=== PATIENT | male | born 1965 | race Caucasian/White ===

== ENCOUNTER 2016-04-26 09:11 | Emergency (ER) | payer MEDICAID ==
[~2016-04-26 09:11] MED LIST: /DULO30CA OR; /HALO2TA OR; /HALO5TAB OR; /THIA10TA; ABIL5TAB OR; ADDE10CA3 OR; ALLE25CA; ALLE25CA OR; AMBI10TA OR; CLAR5CHW; CLARITAN; FOLI1TAB; IBUP600T OR; KLON1TAB; KLON1TAB OR; LORA2TAB OR; MAGN250T; MAGNESIUM; MULTIVIT; NEUR800T OR; NEXI20CA OR; No Historical Meds; VITAMIN B COMPLEX WI; campral
--- NOTE | 2016-04-26 10:24 | EDDOCDS ---
Nurse's Notes [facility] Name: Jose Escobar Age: 51 yrs Sex: Male : 1965 Arrival Date: 04/26/2016 Time: 09:11 Bed Triage 1 Private MD: NO PRIMARY PHYSICIAN, . Diagnosis: Encounter for issue of repeat prescription-No controlled substances given per behavioral health Presentation: 04/26 09:13 Presenting complaint: Patient states: need refill on adderall, clonazepam, and srm wellbutrin. has had several visits for the same. has appt in 2 weeks and the . Adult Sepsis Screening: The patient does not have new or worsening altered mentation. Patient's respiratory rate is less than 22. Systolic blood pressure is greater than 100. Patient has a qSOFA score of 0- Negative Sepsis Screen. Suicide/Homicide risk assessment- the patient denies having any suicidal and/or homicidal ideations and does not present with any other emotional, behavioral or mental health complaints. Status: Patient is not a freight service inspector or dependent. Transition of care: patient was not received from another setting of care. 09:13 Acuity: KEYANA Level 5 srm 09:13 Method Of Arrival: Walkin/Carried/Asstd srm Triage Assessment: 09:16 General: Appears in no apparent distress, Behavior is appropriate for age, cooperative. srm Pain: Denies pain. HIV screening NA for this visit Offered previously. Historical: - Allergies: PENICILLINS (Anaphylaxis); - Home Meds: 1. clonazepam 2 mg Oral tab 1 tab 3 times per day 2. Adderall 30 mg oral tab 1 tab 2 times per day 3. bupropion HCl 150 mg Oral TbER 1 tab once daily 4. Ventolin Rotahaler/Rotacaps 200 mcg Inhl CpDv Q6h PRN ran out 5. famotidine 40 mg Oral tab 1 tab once daily ran out - PMHx: ADHD; PTSD; GERD; Asthma; - PSHx: Hernia repair- Left inguinal; - Social history: Smoking status: Patient uses tobacco products, current every day smoker. No barriers to communication noted, The patient speaks fluent Rwandan, Speaks appropriately for age. - Family history: Not pertinent. - : The pt / caregiver states he / she is not on anticoagulants. Home medication list is obtained from the patient. - Exposure Risk Screening:: None identified. Screenin:50 Screening information is obtained from the patient. Fall risk: No risks identified. srm Assistance ADL's: requires no assistance with activities of daily living. Abuse/DV Screen: The patient / caregiver reports he/she is: not in a situation that causes fear, pain or injury. Nutritional screening: No deficits noted. Advance Directives: There is no active DNR order. home support is adequate. Assessment: 09:50 General: Appears in no apparent distress, Behavior is appropriate for age, cooperative. srm EENT: No deficits noted. Cardiovascular: No deficits noted. Respiratory: No deficits noted. 10:18 General: Appears in no apparent distress, comfortable, Behavior is appropriate for age, ml6 cooperative. Pain: Denies pain. Cardiovascular: No deficits noted. Capillary refill < 3 seconds is brisk in bilateral fingers toes Heart tones S1 S2 present. Respiratory: No deficits noted. Airway is patent Respiratory effort is even, unlabored, Respiratory pattern is regular, symmetrical, Breath sounds are clear bilaterally. GI: No deficits noted. Abdomen is flat, non- distended Bowel sounds present X 4 quads. Social Work Consult: 10:07 Social Work Note: MILES Jacob at [facility], who confirmed that patient was seen jl there by his therapist this morning. She advised that patient has his first appointment scheduled with Dr. Peña on 05/13. She also noted that he [facility], although is not currently in active treatment there. Patient was discussed with [facility], who advised that he'd prefer to have patient follow up with Dr. Peña before providing any additional controlled medications, especially given the hx. Patient to be referred to follow up with Dr. Peña on the as scheduled. Vital Signs: 09:12 BP 155 / 91; Pulse 103; Resp 18; Temp 98.8; Pulse Ox 100% ; Weight 102.51 kg; Height 6 elp ft. 0 in. (182.88 cm); Pain 0/10; 10:20 ml6 09:12 Body Mass Index 30.65 (102.51 kg, 182.88 cm) elp 10:20 patient refused ml6 Vitals: 09:12 Log In Time: April 26, 2016 at 09:10. [facility] ED Course: 09:12 Patient visited by Zenaida Evangelista, WATSON. elp 09:12 NO PRIMARY PHYSICIAN, . is Private Physician. elp 09:12 Patient moved to Waiting elp 09:13 Patient visited by Zenaida Evangelista PCA. elp 09:13 Patient moved to Pre RCE elp 09:15 Triage Initiated srm 09:17 Patient moved to Triage 1 srm 09:18 Jacinto Sanchez PA is PHCP. btw 09:18 Mike Kimball MD is Attending Physician. btw 09:21 Patient visited by Jacinto Sanchez PA. btw 09:50 The patient / caregiver is instructed regarding the plan of care and ED course. Patient srm has correct armband on for positive identification. 09:51 Patient visited by Leydi Mccormick RN. srm 10:05 [facility] Payment Agreement was scanned into [employer] and attached to record. lg 10:07 [facility] is Referral Physician. btw 10:22 No IV's were initiated during this patient's visit. No procedures done that require ml6 assistance. Order Results: There are currently no results for this order. Outcome: 10:08 Discharge ordered by Provider. btw 10:20 Discharge Assessment: patient administered narcotics - no. The following High Risk ml6 Discharge criteria are identified: None. Discharged to home ambulatory. Condition: stable. Discharge instructions given to patient, Instructed on discharge instructions, follow up and referral plans. medication usage, Demonstrated understanding of instructions, medications, Patient was not receptive of discharge instructions. Other patient yelling at staff, states "I don't want fucking hydroxizine" , patient threw D/C papers on the floor. No special radiology studies were completed. Property :Personal belongings accompany Pt. 10:23 Patient left the ED. ml6 Signatures: Leydi Mccormick, RN RN [facility] Adeline, Murray, PSA PSA Latoya Davis, Reg Reg Jose Hwang RN RN ml6 Jacinto Sanchez PA PA btw Zenaida Evangelista PCA EXTERIOR WORK HELPER elp MTDD
--- NOTE | 2016-04-26 10:24 | EDDOCDS ---
Physician Documentation [facility] Name: Jose Escobar Age: 51 yrs Sex: Male : 1965 Arrival Date: 04/26/2016 Time: 09:11 Bed Triage 1 Private MD: NO PRIMARY PHYSICIAN, . Disposition: 04/26/16 10:08 Discharged to Home/Self Care. Impression: Encounter for issue of repeat prescription - No controlled substances given per behavioral health. - Condition is Stable. - Discharge Instructions: Medicine Refill at the Emergency Department. - Prescriptions for bupropion HCl 150 mg Oral tablet extended release - take 1 tablet by ORAL route once daily; 14 tablet. Hydroxyzine HCl 50 mg Oral Tablet - take 1 tablet by ORAL route every 8 hours As needed; 20 tablet. - Medication Reconciliation, Local Pharmacy Hours form. - Follow up: [facility]; When: As soon as possible; Reason: Further diagnostic work-up, Recheck today's complaints, Continuance of care. - Problem is an ongoing problem. - Symptoms are unchanged. Historical: - Allergies: PENICILLINS (Anaphylaxis); - Home Meds: 1. clonazepam 2 mg Oral tab 1 tab 3 times per day 2. Adderall 30 mg oral tab 1 tab 2 times per day 3. bupropion HCl 150 mg Oral TbER 1 tab once daily 4. Ventolin Rotahaler/Rotacaps 200 mcg Inhl CpDv Q6h PRN ran out 5. famotidine 40 mg Oral tab 1 tab once daily ran out - PMHx: ADHD; PTSD; GERD; Asthma; - PSHx: Hernia repair- Left inguinal; - Social history: Smoking status: Patient uses tobacco products, current every day smoker. No barriers to communication noted, The patient speaks fluent Luxembourgish, Speaks appropriately for age. - Family history: Not pertinent. - : The pt / caregiver states he / she is not on anticoagulants. Home medication list is obtained from the patient. - Exposure Risk Screening:: None identified. Vital Signs: 04/26 09:12 BP 155 / 91; Pulse 103; Resp 18; Temp 98.8; Pulse Ox 100% ; Weight 102.51 kg / 226 lbs; elp Height 6 ft. 0 in. (182.88 cm); Pain 0/10; 10:20 ml6 09:12 Body Mass Index 30.65 (102.51 kg, 182.88 cm) elp 10:20 patient refused ml6 MDM: 09:49 Financial registration complete. lg 10:05 [facility] Payment Agreement was scanned into [employer] and attached to record. lg Signatures: Leydi Mccormick, RN RN [facility] LisaLatoya andrea, Reg Reg lg Jose Mata RN RN ml6 Jacinto Sanchez PA PA btw The chart was reviewed and I authenticate all verbal orders and agree with the evaluation and treatment provided.Attachments: 10:05 [facility] Payment Agreement lg MTDD
--- NOTE | 2016-04-28 11:23 | EDDOCDS ---
Physician Documentation [facility] Name: Jose Escobar Age: 51 yrs Sex: Male : 1965 Arrival Date: 04/26/2016 Time: 09:11 Bed Triage 1 Private MD: NO PRIMARY PHYSICIAN, . Disposition: 04/26/16 10:08 Discharged to Home/Self Care. Impression: Encounter for issue of repeat prescription - No controlled substances given per behavioral health. - Condition is Stable. - Discharge Instructions: Medicine Refill at the Emergency Department. - Prescriptions for bupropion HCl 150 mg Oral tablet extended release - take 1 tablet by ORAL route once daily; 14 tablet. Hydroxyzine HCl 50 mg Oral Tablet - take 1 tablet by ORAL route every 8 hours As needed; 20 tablet. - Medication Reconciliation, Local Pharmacy Hours form. - Follow up: [facility]; When: As soon as possible; Reason: Further diagnostic work-up, Recheck today's complaints, Continuance of care. - Problem is an ongoing problem. - Symptoms are unchanged. Historical: - Allergies: PENICILLINS (Anaphylaxis); - Home Meds: 1. clonazepam 2 mg Oral tab 1 tab 3 times per day 2. Adderall 30 mg oral tab 1 tab 2 times per day 3. bupropion HCl 150 mg Oral TbER 1 tab once daily 4. Ventolin Rotahaler/Rotacaps 200 mcg Inhl CpDv Q6h PRN ran out 5. famotidine 40 mg Oral tab 1 tab once daily ran out - PMHx: ADHD; PTSD; GERD; Asthma; - PSHx: Hernia repair- Left inguinal; - Social history: Smoking status: Patient uses tobacco products, current every day smoker. No barriers to communication noted, The patient speaks fluent Khmer, Speaks appropriately for age. - Family history: Not pertinent. - : The pt / caregiver states he / she is not on anticoagulants. Home medication list is obtained from the patient. - Exposure Risk Screening:: None identified. Vital Signs: 04/26 09:12 BP 155 / 91; Pulse 103; Resp 18; Temp 98.8; Pulse Ox 100% ; Weight 102.51 kg / 226 lbs; elp Height 6 ft. 0 in. (182.88 cm); Pain 0/10; 10:20 ml6 09:12 Body Mass Index 30.65 (102.51 kg, 182.88 cm) elp 10:20 patient refused ml6 MDM: 09:49 Financial registration complete. lg : [facility] Payment Agreement was scanned into [employer] and attached to record. lg 04/27 10: T-Sheet-- Draft Copy was scanned into [employer] and attached to record. gb Signatures: Leydi Mccormick RN RN [facility] Ramya Santiago, Reg Reg gb Latoya Snell, Reg Reg lg Jose Mata RN RN ml6 Jacinto Sanchez, GARRET PA btw The chart was reviewed and I authenticate all verbal orders and agree with the evaluation and treatment provided.Attachments: 04/26 10:05 [facility] Payment Agreement lg 04/27 10: T-Sheet-- Draft Copy gb Chart Complete MTDD
--- NOTE | 2016-04-28 11:24 | EDDOCDS ---
Nurse's Notes [facility] Name: Jose Escobar Age: 51 yrs Sex: Male : 1965 Arrival Date: 04/26/2016 Time: 09:11 Bed Triage 1 Private MD: NO PRIMARY PHYSICIAN, . Diagnosis: Encounter for issue of repeat prescription-No controlled substances given per behavioral health Presentation: 04/26 09:13 Presenting complaint: Patient states: need refill on adderall, clonazepam, and srm wellbutrin. has had several visits for the same. has appt in 2 weeks and the . Adult Sepsis Screening: The patient does not have new or worsening altered mentation. Patient's respiratory rate is less than 22. Systolic blood pressure is greater than 100. Patient has a qSOFA score of 0- Negative Sepsis Screen. Suicide/Homicide risk assessment- the patient denies having any suicidal and/or homicidal ideations and does not present with any other emotional, behavioral or mental health complaints. Status: Patient is not a health equipment servicer or dependent. Transition of care: patient was not received from another setting of care. 09:13 Acuity: KEYANA Level 5 srm 09:13 Method Of Arrival: Walkin/Carried/Asstd srm Triage Assessment: 09:16 General: Appears in no apparent distress, Behavior is appropriate for age, cooperative. srm Pain: Denies pain. HIV screening NA for this visit Offered previously. Historical: - Allergies: PENICILLINS (Anaphylaxis); - Home Meds: 1. clonazepam 2 mg Oral tab 1 tab 3 times per day 2. Adderall 30 mg oral tab 1 tab 2 times per day 3. bupropion HCl 150 mg Oral TbER 1 tab once daily 4. Ventolin Rotahaler/Rotacaps 200 mcg Inhl CpDv Q6h PRN ran out 5. famotidine 40 mg Oral tab 1 tab once daily ran out - PMHx: ADHD; PTSD; GERD; Asthma; - PSHx: Hernia repair- Left inguinal; - Social history: Smoking status: Patient uses tobacco products, current every day smoker. No barriers to communication noted, The patient speaks fluent Cambodian, Speaks appropriately for age. - Family history: Not pertinent. - : The pt / caregiver states he / she is not on anticoagulants. Home medication list is obtained from the patient. - Exposure Risk Screening:: None identified. Screenin:50 Screening information is obtained from the patient. Fall risk: No risks identified. srm Assistance ADL's: requires no assistance with activities of daily living. Abuse/DV Screen: The patient / caregiver reports he/she is: not in a situation that causes fear, pain or injury. Nutritional screening: No deficits noted. Advance Directives: There is no active DNR order. home support is adequate. Assessment: 09:50 General: Appears in no apparent distress, Behavior is appropriate for age, cooperative. srm EENT: No deficits noted. Cardiovascular: No deficits noted. Respiratory: No deficits noted. 10:18 General: Appears in no apparent distress, comfortable, Behavior is appropriate for age, ml6 cooperative. Pain: Denies pain. Cardiovascular: No deficits noted. Capillary refill < 3 seconds is brisk in bilateral fingers toes Heart tones S1 S2 present. Respiratory: No deficits noted. Airway is patent Respiratory effort is even, unlabored, Respiratory pattern is regular, symmetrical, Breath sounds are clear bilaterally. GI: No deficits noted. Abdomen is flat, non- distended Bowel sounds present X 4 quads. Social Work Consult: 10:07 Social Work Note: MILES Jacob at [facility], who confirmed that patient was seen jl there by his therapist this morning. She advised that patient has his first appointment scheduled with Dr. Peña on 05/13. She also noted that he has a h[facility], although is not currently in active treatment there. Patient was discussed with [facility], who advised that he'd prefer to have patient follow up with Dr. Peña before providing any additional controlled medications, especially given the hx. Patient to be referred to follow up with Dr. Peña on the as scheduled. Vital Signs: 09:12 BP 155 / 91; Pulse 103; Resp 18; Temp 98.8; Pulse Ox 100% ; Weight 102.51 kg; Height 6 elp ft. 0 in. (182.88 cm); Pain 0/10; 10:20 ml6 09:12 Body Mass Index 30.65 (102.51 kg, 182.88 cm) elp 10:20 patient refused ml6 Vitals: 09:12 Log In Time: April 26, 2016 at 09:10. [facility] ED Course: 09:12 Patient visited by Zenaida Evangelista, WATSON. elp 09:12 NO PRIMARY PHYSICIAN, . is Private Physician. elp 09:12 Patient moved to Waiting elp 09:13 Patient visited by Zenaida Evangelista PCA. elp 09:13 Patient moved to Pre RCE elp 09:15 Triage Initiated srm 09:17 Patient moved to Triage 1 srm 09:18 Jacinto Sanchez PA is PHCP. btw 09:18 Mike Kimball MD is Attending Physician. btw 09:21 Patient visited by Jacinto Sanchez PA. btw 09:50 The patient / caregiver is instructed regarding the plan of care and ED course. Patient srm has correct armband on for positive identification. 09:51 Patient visited by Leydi Mccormick RN. srm 10:05 [facility] Payment Agreement was scanned into [employer] and attached to record. lg 10:07 [facility] is Referral Physician. btw 10:22 No IV's were initiated during this patient's visit. No procedures done that require ml6 assistance. 04/27 10:19 T-Sheet-- Draft Copy was scanned into [employer] and attached to record. gb Order Results: There are currently no results for this order. Outcome: 04/26 10:08 Discharge ordered by Provider. btw 10:20 Discharge Assessment: patient administered narcotics - no. The following High Risk ml6 Discharge criteria are identified: None. Discharged to home ambulatory. Condition: stable. Discharge instructions given to patient, Instructed on discharge instructions, follow up and referral plans. medication usage, Demonstrated understanding of instructions, medications, Patient was not receptive of discharge instructions. Other patient yelling at staff, states "I don't want fucking hydroxizine" , patient threw D/C papers on the floor. No special radiology studies were completed. Property :Personal belongings accompany Pt. 10:23 Patient left the ED. ml6 Signatures: Leydi Mccormick, KATHERINE MURPHY [facility] Adeline, Murray, PSA PSA Ramya Davidson, Reg Reg gb Latoya Snell, Reg Reg lg Jose Mata RN RN ml6 Jacnito Sanchez PA PA btw Zenaida Evangelista PCA ASE CERTIFIED TECHNICIAN elp Chart Complete MTDD
--- NOTE | 2016-04-28 11:24 | EDDOCDS ---
Physician Documentation [facility] Name: Jose Escobar Age: 51 yrs Sex: Male : 1965 Arrival Date: 04/26/2016 Time: 09:11 Bed Triage 1 Private MD: NO PRIMARY PHYSICIAN, . Disposition: 04/26/16 10:08 Discharged to Home/Self Care. Impression: Encounter for issue of repeat prescription - No controlled substances given per behavioral health. - Condition is Stable. - Discharge Instructions: Medicine Refill at the Emergency Department. - Prescriptions for bupropion HCl 150 mg Oral tablet extended release - take 1 tablet by ORAL route once daily; 14 tablet. Hydroxyzine HCl 50 mg Oral Tablet - take 1 tablet by ORAL route every 8 hours As needed; 20 tablet. - Medication Reconciliation, Local Pharmacy Hours form. - Follow up: [facility]; When: As soon as possible; Reason: Further diagnostic work-up, Recheck today's complaints, Continuance of care. - Problem is an ongoing problem. - Symptoms are unchanged. Historical: - Allergies: PENICILLINS (Anaphylaxis); - Home Meds: 1. clonazepam 2 mg Oral tab 1 tab 3 times per day 2. Adderall 30 mg oral tab 1 tab 2 times per day 3. bupropion HCl 150 mg Oral TbER 1 tab once daily 4. Ventolin Rotahaler/Rotacaps 200 mcg Inhl CpDv Q6h PRN ran out 5. famotidine 40 mg Oral tab 1 tab once daily ran out - PMHx: ADHD; PTSD; GERD; Asthma; - PSHx: Hernia repair- Left inguinal; - Social history: Smoking status: Patient uses tobacco products, current every day smoker. No barriers to communication noted, The patient speaks fluent Greenlandic, Speaks appropriately for age. - Family history: Not pertinent. - : The pt / caregiver states he / she is not on anticoagulants. Home medication list is obtained from the patient. - Exposure Risk Screening:: None identified. Vital Signs: 04/26 09:12 BP 155 / 91; Pulse 103; Resp 18; Temp 98.8; Pulse Ox 100% ; Weight 102.51 kg / 226 lbs; elp Height 6 ft. 0 in. (182.88 cm); Pain 0/10; 10:20 ml6 09:12 Body Mass Index 30.65 (102.51 kg, 182.88 cm) elp 10:20 patient refused ml6 MDM: 09:49 Financial registration complete. lg : [facility] Payment Agreement was scanned into [employer] and attached to record. lg 04/27 10: T-Sheet-- Draft Copy was scanned into [employer] and attached to record. gb Signatures: Leydi Mccormick RN RN [facility] Ramya Santiago, Reg Reg gb Latoya Snell, Reg Reg lg Jose Mata RN RN ml6 Jacinto Sanchez, GARRET PA btw The chart was reviewed and I authenticate all verbal orders and agree with the evaluation and treatment provided.Attachments: 04/26 10:05 [facility] Payment Agreement lg 04/27 10: T-Sheet-- Draft Copy gb Chart Complete MTDD
== END 2016-04-26 10:23 | disposition home or self-care (01) ==
LOC: M ED 09:11
DX: Z76.0 Encounter for issue of repeat prescription (principal); F90.9 Attention-deficit hyperactivity disorder, unspecified type; F43.10 Post-traumatic stress disorder, unspecified; K21.9 Gastro-esophageal reflux disease without esophagitis; J45.909 Unspecified asthma, uncomplicated; Z72.0 Tobacco use; Z79.899 Other long term (current) drug therapy; Z88.0 Allergy status to penicillin

== ENCOUNTER → 2016-05-06 | Outpatient (CLI) | payer MEDICAID | LOC: M OUTALCOH 07:45 | PROVIDERS: ATTEND Psychiatry & Neurology Psychiatry | DX: Z13.9 Encounter for screening, unspecified (principal); F14.10 Cocaine abuse, uncomplicated; F10.20 Alcohol dependence, uncomplicated ==

== ENCOUNTER → 2016-05-20 | Outpatient (CLI) | payer MEDICAID ==
--- NOTE | 2016-05-20 15:17 | REP ---
RIGHT INGUINAL AND LEFT INGUINAL CANAL ULTRASOUND. HISTORY: Groin pain. History of left inguinal hernia repair in approximate 1994. FINDINGS: Bilateral inguinal canal and inguinal region soft-tissue ultrasound is performed. There is evidence of a reducible hernia in the right inguinal region containing mesenteric fat. No increase in canal size with Valsalva noted on the left. Some hypoechoic mesenteric fat can be seen within the canal. No definite hernia seen. The right canal increases with Valsalva from 10 mm to 22.8 mm AP dimension. IMPRESSION: Findings consistent with right inguinal hernia transmitting mesenteric fat. This is reducible. Equivocal findings on the left. No increase in canal size with Valsalva. Signed by Bret Clifford MD 05/20/2016 03:22 P
[2016-05-20 16:09] LABS: ALBUMIN 4.1 GM/DL (3.2-5.2); ALBUMIN/GLOBULIN RATIO 1.52 (1.00-1.93); ALKALINE PHOSPHATASE 56 U/L (45-117); ALT/SGPT 26 U/L (12-78); ANION GAP 7 MEQ/L (8-16); AST/SGOT 19 U/L (15-37); BILIRUBIN,TOTAL 0.3 MG/DL (0.2-1.0); BLOOD UREA NITROGEN 10 MG/DL (7-18); CALCIUM LEVEL 8.7 MG/DL (8.5-10.1); CARBON DIOXIDE LEVEL 30 MEQ/L (21-32); CHLORIDE LEVEL 108 MEQ/L (98-107); CHOLESTEROL LEVEL 144 MG/DL (<200); CREATININE FOR GFR 1.08 MG/DL (0.70-1.30); GLOMERULAR FILTRATION RATE > 60.0 (>56); GLUCOSE, FASTING 87 MG/DL (70-105); MAGNESIUM LEVEL 2.1 MG/DL (1.8-2.4); POTASSIUM SERUM 4.3 MEQ/L (3.5-5.1); SODIUM LEVEL 145 MEQ/L (136-145); TOTAL PROTEIN 6.8 GM/DL (6.4-8.2); TRIGLYCERIDES LEVEL 146 MG/DL (<150)
[2016-05-20 18:12] LABS: BASO # 0.1 K/mm3 (0.0-0.2); BASO % 1.7 % (0.0-1.0); EOS # 0.4 K/mm3 (0.0-0.50); EOS % 6.3 % (0.0-3.0); LARGE UNSTAINED CELL # 0.2 K/mm3 (0.0-0.4); LYMPH # 1.5 K/mm3 (1.5-4.5); LYMPH % 21.9 % (24.0-44.0); MEAN CORPUSCULAR HEMOGLOBIN 31.5 pg (27.0-33.0); MEAN CORPUSCULAR HGB CONC 33.1 g/dl (32.0-36.5); MEAN CORPUSCULAR VOLUME 95.2 fl (80.0-96.0); MONO # 0.4 K/mm3 (0.0-0.8); MONO % 6.8 % (0.0-5.0); NEUTROPHILS # 3.7 K/mm3 (1.8-7.7); NEUTROPHILS % 60.3 % (36.0-66.0); PLATELET COUNT, AUTOMATED 218 k/mm3 (150-450); WHITE BLOOD COUNT 6.2 K/mm3 (4.0-10.0)
== END ==
LOC: M LAB 14:04 → M RAD 14:04
PROVIDERS: ATTEND Nurse Practitioner Family
DX: K40.90 Unilateral inguinal hernia, without obstruction or gangrene, not specified as recurrent (principal); K50.90 Crohn's disease, unspecified, without complications; R19.7 Diarrhea, unspecified; F41.8 Other specified anxiety disorders; Z13.220 Encounter for screening for lipoid disorders

== ENCOUNTER → 2016-05-30 | Outpatient (CLI) | payer MEDICAID ==
--- NOTE | 2016-05-30 10:38 | REP ---
Lumbar spine series: Seven views. History: Muscle spasm. Back pain. Comparison study September 25, 2013. Findings: Lateral views done in flexion extension and neutral position show no subluxation or instability. Lumbar vertebral body heights are preserved. There is degenerative disc disease diffusely in the lumbar spine with vacuum phenomenon and osteophyte formation at L5-S1 and disc space narrowing and early spurring L4-5, L3-4 and L2-3. These findings are essentially unchanged from the 2013 study. Vascular calcification is seen in a normal caliber aorta. Pedicles and posterior elements are intact. There is no evidence of spondylolysis or spondylolisthesis. Psoas margins are symmetric. Sacrum and SI joints are unremarkable. There is some facet hypertrophy and sclerosis on the left at L3-4 and bilaterally at L4-5 and L5-S1. This is mild. No bony destructive lesion is seen. Impression: Degenerative spondylosis changes. No acute bony abnormality. Signed by Bret Clifford MD 05/30/2016 12:24 P
== END ==
LOC: M WUC 09:15
PROVIDERS: ATTEND Nurse Practitioner Family
DX: M47.817 Spondylosis without myelopathy or radiculopathy, lumbosacral region (principal); M62.830 Muscle spasm of back

== ENCOUNTER → 2016-07-08 | Outpatient (CLI) | payer OTHER ==
[~2016-07-08] MED LIST changes: +ALBU17IN INH; +CLON1TAB PO; +COZA50TA PO; +METO25TA74 PO; +MULT1TAB18 PO; +NEXI20CA AD; -NEXI20CA OR
--- NOTE | 2016-07-09 22:04 | ECGEPIP ---
Stationary ECG Study [facility] Test Date: 2016-07-08 Pat Name: MAYO GRIFFITH Department: Room: - Gender: M Proprietary Trader: MICHAEL : 1965 Requested By: HAMLET Ashby Order Number: [id number] Reading MD: Dirk Haile Measurements Intervals [place] Rate: 79 P: 52 CT: 130 QRS: 54 QRSD: 78 T: 53 QT: 362 QTc: 416 Interpretive Statements SINUS RHYTHM WITH MARKED SINUS ARRHYTHMIA SINCE 11/12/12 HR IS SLOWER AND INCOMPLETE RIGHT BUNDLE BRANCH BLOCK IS NO LONGER PRESENT Electronically Signed On 07-09-2016 22:04:02 EDT by Dirk Haile
== END ==
LOC: M EKG 11:24
PROVIDERS: ATTEND Anesthesiology
DX: I10 Essential (primary) hypertension (principal)

== ENCOUNTER → 2016-07-08 | Outpatient (CLI) | payer OTHER ==
[2016-07-08 12:06] LABS: MEAN CORPUSCULAR HEMOGLOBIN 32.2 pg (27.0-33.0); MEAN CORPUSCULAR HGB CONC 34.5 g/dl (32.0-36.5); MEAN CORPUSCULAR VOLUME 93.4 fl (80.0-96.0); RED CELL DISTRIBUTION WIDTH 13.4 % (11.5-14.5); WHITE BLOOD COUNT 6.5 K/mm3 (4.0-10.0)
[2016-07-08 12:34] LABS: ALBUMIN 4.2 GM/DL (3.2-5.2); ALBUMIN/GLOBULIN RATIO 1.35 (1.00-1.93); ALKALINE PHOSPHATASE 72 U/L (45-117); ALT/SGPT 22 U/L (12-78); ANION GAP 8 MEQ/L (8-16); AST/SGOT 13 U/L (15-37); BILIRUBIN,TOTAL 0.4 MG/DL (0.2-1.0); BLOOD UREA NITROGEN 17 MG/DL (7-18); CALCIUM LEVEL 9.1 MG/DL (8.5-10.1); CARBON DIOXIDE LEVEL 29 MEQ/L (21-32); CHLORIDE LEVEL 105 MEQ/L (98-107); CREATININE FOR GFR 0.94 MG/DL (0.70-1.30); GLOMERULAR FILTRATION RATE > 60.0 (>56); GLUCOSE, FASTING 94 MG/DL (70-105); MAGNESIUM LEVEL 2.2 MG/DL (1.8-2.4); POTASSIUM SERUM 3.9 MEQ/L (3.5-5.1); SODIUM LEVEL 142 MEQ/L (136-145); TOTAL PROTEIN 7.3 GM/DL (6.4-8.2)
== END ==
LOC: M LAB 11:17
PROVIDERS: ATTEND Nurse Practitioner Family
DX: R20.2 Paresthesia of skin (principal); D64.9 Anemia, unspecified

== ENCOUNTER → 2016-07-12 | Day surgery (SDC) | payer MEDICAID, OTHER ==
[~2016-07-12] VITALS: Ht 185.4 cm; Wt 105.2 kg
[~2016-07-12] MED LIST changes: +BUPIVACAINE HCL 0.25% 30 ML VIAL As Ordered ONE; +GLYCOPYRROLATE INJ 0.2 MG/ML 2 ML VIAL As Ordered ONE; +KETOROLAC 30 MG/ML VIAL (J1885) IV PRN; +KETOROLAC 60 MG/2 ML VIAL (J1885) As Ordered ONE; +LIDOCAINE 1% SDV INJ 30 ML VIAL As Ordered ONE; +LIDOCAINE 2% INJ 100 MG/5 ML SDV (FOR ANES.) As Ordered ONE; +LR 1,000 ML IV SCH; +LevoFLOXacin IV 500 MG in APPROPRIATE DILUENT 1 EA IV ONE; +METOCLOPRAMIDE INJ 10MG/2ML VIAL (J2765) As Ordered ONE; +MIDAZOLAM INJ 2 MG/2 ML VIAL (J2250) As Ordered ONE; +NEOSTIGMINE 1MG/ML 5 ML SYRINGE (J2710) As Ordered ONE; +NORC1TAB4 PO; +NORCO, ANEXSIA 5/325MG TABLET (HYDROcodone/ACETAMINOPHEN) PO PRN; +ONDANSETRON 4MG/2ML VIAL (J2405) As Ordered ONE; +ONDANSETRON 4MG/2ML VIAL (J2405) IV PRN; +PROPOFOL 200 MG/20 ML VIAL As Ordered ONE; +ROCURONIUM BROMIDE 50 MG/5 ML VIAL As Ordered ONE; +dexameTHASONE 4 MG/ML 1ML VIAL (J1100) As Ordered ONE; +fentaNYL 100 MCG/2 ML INJECTION (J3010) IV PRN; +fentaNYL 250 MCG/5 ML INJECTION (J3010) As Ordered ONE
[2016-07-12 14:40] VITALS: BP 153/91
--- NOTE | 2016-07-12 18:35 | RO ---
DATE OF PROCEDURE: 07/12/2016 PREOPERATIVE DIAGNOSIS: Right inguinal hernia. POSTOPERATIVE DIAGNOSIS: Right direct inguinal hernia. PROCEDURE: Robotic-assisted laparoscopic right inguinal hernia repair, transabdominal preperitoneal hernioplasty (KHURRAM). SURGEON: Dr. Biggs GOLF COURSE KEEPER: Alexa Kc NP ANESTHESIA: General anesthesia. ESTIMATED BLOOD LOSS: Less than10 mL. COMPLICATIONS: None. REMARKS: The patient tolerated procedure well. PROCEDURE: Mr. Escobar is a 51-year-old gentleman who was sent to my clinic for discomfort involving the right groin especially with effort. Was found to have a small right inguinal hernia. This was confirmed in my clinical exam. He was advised repair and different options for repair. We have decided on performing laparoscopic repair with the help to the [employer] robot platform. He received Levaquin 500 mg intravenous (IV) preoperatively for prophylaxis. Was brought to the operating room, placed in the lithotomy position. General endotracheal anesthesia then started without any problems. A Lovell catheter was placed to decompress his urinary bladder. Abdomen prepped and draped in usual sterile fashion. After surgical time-out we began our surgery. A small incision created superior to the umbilicus taken deep into the anterior fascia. A Veress needle placed in controlled fashion. CO2 insufflation started to a pressure of 15 mmHg. Using the same incision a 5 mm Visiport was placed under direct vision of laparoscope. He was then placed in a mild Trendelenburg position. Right side tilted up to further expose the right groin area. Two robotic working trocars were placed along the right and left side at the umbilical line. The [employer] robot tower was maneuvered in place in-between the patient's legs. The trocars then docked to the robot. I scrubbed out and took control of the camera and instruments at the surgeon's console. Diagnostic laparoscopy: Small direct hernia defect was noted and confirmed. Using scissors with the Bovie cautery, the peritoneum overlying the area along a line forming from the medial umbilical ligament medially to the anterior-superior iliac spine laterally was created. The peritoneum was taken down away from the abdominal wall coming back to the medial edge also exposing the pubic tubercle up to the symphysis pubis. The fat containing hernia defect at the direct hernia space medial to the inferior epigastric vessels was reduced back into the preperitoneal space. The contents of the inguinal canal was further dissected free taking down the peritoneum away from this area, down inferiorly to about the level of the iliopubic tract. The space that was created was then further dissected free to accommodate a large mesh. Using to 2-0 V-Loc the hernia defect as well as the hernia sac was closed with a mattress suture, likewise the hernia sac was imbricated away from the defect. After doing so I chose a large 3-D Max light mesh which was placed into the abdomen and laid out into the preperitoneal space adequately covering the direct and indirect hernia space as well as the potential hernia spaces along the femoral space. A single stitch of #2-0 Vicryl was placed along the pubic tubercle told this in place. After checking for hemostasis the peritoneal opening was then closed with 2-0 V-Loc in a running fashion. There was a small defect on the inferior peritoneal covering from our dissection which was also closed with a 2-0 Vicryl. After surveying the pelvis for possible injury, and once satisfied I scrubbed back in. The abdomen was then deflated. All ports removed. I placed ilioinguinal block along the right groin as well as placed more local numbing medication at the port site. This was then closed with #4-0 Monocryl in subcuticular fashion. Dermabond was then used for wound coverage. The patient was promptly awakened, extubated, Lovell catheter removed, brought to recovery room stable.
== END | disposition home or self-care (01) ==
LOC: M SDC 08:33
PROVIDERS: ATTEND Surgery
DX: K40.90 Unilateral inguinal hernia, without obstruction or gangrene, not specified as recurrent (principal); I10 Essential (primary) hypertension; D64.9 Anemia, unspecified; J45.909 Unspecified asthma, uncomplicated; F90.9 Attention-deficit hyperactivity disorder, unspecified type; F43.10 Post-traumatic stress disorder, unspecified; Z79.899 Other long term (current) drug therapy; Z88.0 Allergy status to penicillin; F17.210 Nicotine dependence, cigarettes, uncomplicated
CPT/HCPCS: 49650; C1781; J1100; J1885; J1956; J2250; J2405; J2710; J2765; J3010

== ENCOUNTER 2016-11-17 12:57 | Emergency (ER) | payer OTHER ==
[~2016-11-17] VITALS: Ht 185.4 cm; Wt 108.2 kg
[2016-11-17 12:57] VITALS: BP 169/94
[~2016-11-17 12:57] MED LIST changes: -BUPIVACAINE HCL 0.25% 30 ML VIAL As Ordered ONE; -GLYCOPYRROLATE INJ 0.2 MG/ML 2 ML VIAL As Ordered ONE; -KETOROLAC 30 MG/ML VIAL (J1885) IV PRN; -KETOROLAC 60 MG/2 ML VIAL (J1885) As Ordered ONE; -LIDOCAINE 1% SDV INJ 30 ML VIAL As Ordered ONE; -LIDOCAINE 2% INJ 100 MG/5 ML SDV (FOR ANES.) As Ordered ONE; -LR 1,000 ML IV SCH; -LevoFLOXacin IV 500 MG in APPROPRIATE DILUENT 1 EA IV ONE; +METO1TAB32 PO; -METO25TA74 PO; -METOCLOPRAMIDE INJ 10MG/2ML VIAL (J2765) As Ordered ONE; -MIDAZOLAM INJ 2 MG/2 ML VIAL (J2250) As Ordered ONE; -NEOSTIGMINE 1MG/ML 5 ML SYRINGE (J2710) As Ordered ONE; -NORCO, ANEXSIA 5/325MG TABLET (HYDROcodone/ACETAMINOPHEN) PO PRN; -ONDANSETRON 4MG/2ML VIAL (J2405) As Ordered ONE; -ONDANSETRON 4MG/2ML VIAL (J2405) IV PRN; -PROPOFOL 200 MG/20 ML VIAL As Ordered ONE; -ROCURONIUM BROMIDE 50 MG/5 ML VIAL As Ordered ONE; -dexameTHASONE 4 MG/ML 1ML VIAL (J1100) As Ordered ONE; -fentaNYL 100 MCG/2 ML INJECTION (J3010) IV PRN; -fentaNYL 250 MCG/5 ML INJECTION (J3010) As Ordered ONE
[2016-11-17] MEDS ORDERED: WELLTAB40 PO (13:13)
[2016-11-17] MEDS ORDERED: OMEP10CASR PO (13:13)
[2016-11-17] MEDS ORDERED: TRAM50TA2 PO (13:30)
== END 2016-11-17 13:38 | disposition home or self-care (01) ==
LOC: M ED 12:57
DX: S43.401A Unspecified sprain of right shoulder joint, initial encounter (principal); X50.0XXA Overexertion from strenuous movement or load, initial encounter; Y92.099 Unspecified place in other non-institutional residence as the place of occurrence of the external cause; Y93.9 Activity, unspecified; Y99.9 Unspecified external cause status; J45.909 Unspecified asthma, uncomplicated; F17.200 Nicotine dependence, unspecified, uncomplicated; Z79.899 Other long term (current) drug therapy; Z88.0 Allergy status to penicillin

== ENCOUNTER → 2017-01-09 | Outpatient (CLI) | payer OTHER ==
[~2017-01-09] MED LIST changes: +OMEP10CASR PO; +TRAM50TA2 PO; +WELLTAB40 PO
--- NOTE | 2017-01-09 18:26 | REP ---
Right shoulder series: Three views. History: Right shoulder pain. Findings: Three views of the right shoulder demonstrate normal alignment of the glenohumeral and acromioclavicular joints. Periarticular soft tissues are unremarkable. No erosive changes seen. No fracture is noted. Impression: Negative right shoulder radiographs. Signed by Bret Clifford MD 01/10/2017 08:08 A
== END ==
LOC: M WUC 13:00
PROVIDERS: ATTEND Nurse Practitioner Family
DX: M25.511 Pain in right shoulder (principal)

== ENCOUNTER 2017-04-21 09:10 | Emergency (ER) | payer OTHER ==
[2017-04-21] MEDS: ALBUTEROL SULFATE 2.5 MG/0.5 ML INH NEB SOLN NEB (10:09)
== END 2017-04-21 11:00 | disposition home or self-care (01) ==
LOC: M ED 09:10
DX: J45.901 Unspecified asthma with (acute) exacerbation (principal); R03.0 Elevated blood-pressure reading, without diagnosis of hypertension; F17.200 Nicotine dependence, unspecified, uncomplicated; Z79.899 Other long term (current) drug therapy; Z88.0 Allergy status to penicillin
CPT/HCPCS: 94640

== ENCOUNTER 2017-08-11 08:09 | Outpatient (RCR) | payer OTHER | END 2017-08-18 | LOC: M PT 08:09 | DX: Z51.89 Encounter for other specified aftercare (principal); M75.41 Impingement syndrome of right shoulder | CPT/HCPCS: 97110 ==

== ENCOUNTER 2019-04-02 17:08 | Emergency (ER) | payer OTHER, SELFPAY ==
[~2019-04-02] VITALS: Ht 182.9 cm; Wt 114.4 kg
[~2019-04-02 17:08] MED LIST changes: -/DULO30CA OR; -/HALO2TA OR; -/HALO5TAB OR; +ADDE30CA3; +ARIP1TAB10 PO; +ATEN50TA2 PO; -CLON1TAB PO; +CLON1TAB8 PO; +CYMB1CAP5 OR; +HALO1TAB19 OR; +HALO1TAB21 OR; -NORC1TAB4 PO; +NORC1TAB7 PO; +PRED20TA PO; +PROAAER10 INH; +QUET1TAB8
[2019-04-02] MEDS ORDERED: NS 1,000 ML IV ONE ×3 (17:45→20:30)
[2019-04-02 18:14] LABS: HEMATOCRIT 27.9 % (42.0-52.0); MEAN CORPUSCULAR HEMOGLOBIN 16.2 pg (27.0-33.0); MEAN CORPUSCULAR HGB CONC 24.4 g/dl (32.0-36.5); MEAN CORPUSCULAR VOLUME 66.4 fl (80.0-96.0); PLATELET COUNT, AUTOMATED 475 10^3/uL (150-450); WHITE BLOOD COUNT 7.3 10^3/uL (4.0-10.0)
[2019-04-02 18:21] LABS: HEMOGLOBIN 6.8 g/dl (13.5-17.5)
[2019-04-02 18:24] LABS: INR 3.3; PARTIAL THROMBOPLASTIN TIME 38.5 SECONDS (25.0-38.4); PROTHROMBIN TIME 33.5 SECONDS (11.8-14.0)
[2019-04-02 18:52] LABS: ACETAMINOPHEN LEVEL < 2.0 UG/ML (10.0-30.0); ALBUMIN 2.7 GM/DL (3.2-5.2); ALT/SGPT 5551 U/L (12-78); AMYLASE 58 U/L (25-115); BILIRUBIN,DIRECT 8.5 MG/DL (0.0-0.2); BILIRUBIN,TOTAL 10.6 MG/DL (0.2-1.0); BLOOD UREA NITROGEN 20 MG/DL (7-18); CALCIUM LEVEL 8.9 MG/DL (8.5-10.1); CARBON DIOXIDE LEVEL 19 MEQ/L (21-32); CHLORIDE LEVEL 100 MEQ/L (98-107); CK-MB VALUE MASS 1.9 NG/ML (<3.6); CPK CREATINE PHOSPHOKINASE 97 U/L (39-308); CREATININE FOR GFR 2.37 MG/DL (0.70-1.30); GLOMERULAR FILTRATION RATE 30.9 (>56); GLUCOSE, FASTING 90 MG/DL (70-100); LIPASE 402 U/L (73-393); MB/CK RELATIVE INDEX 1.96 (< OR =4); POTASSIUM SERUM 5.3 MEQ/L (3.5-5.1); SODIUM LEVEL 133 MEQ/L (136-145); TOTAL PROTEIN 6.3 GM/DL (6.4-8.2); TROPONIN I < 0.02 NG/ML (< 0.10)
[2019-04-02 19:01] LABS: LYMPHOCYTES 18 % (16-44); MONOCYTES 6 % (0-5); NEUTROPHILS 76 % (28-66); PLATELET ESTIMATE INCREASED (NORMAL)
[2019-04-02 19:02] LABS: HYPOCHROMASIA 3+; MICROCYTOSIS 3+
[2019-04-02 19:03] LABS: ANISOCYTOSIS 2+
[2019-04-02 19:04] LABS: POIKILOCYTOSIS 1+; POLYCHROMASIA 1+; TARGET CELLS 1+
--- NOTE | 2019-04-02 19:17 | REPVR ---
PROCEDURE INFORMATION: Exam: CT Abdomen And Pelvis Without Contrast Exam date and time: 04/02/2019 6:57 PM Age: 53 years old Clinical history: Abnormal findings; Abnormal lab test; Elevated liver enzymes; Additional info: Abnormal liver function tests TECHNIQUE: Imaging protocol: Computed tomography of the abdomen and pelvis without contrast. Radiation optimization: All CT scans at this facility use at least one of these dose optimization techniques: automated exposure control; mA and/or kV adjustment per patient size (includes targeted exams where dose is matched to clinical indication); or iterative reconstruction. COMPARISON: Pelvis, limited US 05/20/2016 2:34 PM FINDINGS: Lungs: There is a tiny noncalcified peripheral lung nodule measuring less than 3 mm in the left lower lobe. No followup suggested as these are overwhelmingly statistically likely to be benign granulomas. Liver: There is a diffuse decrease in hepatic parenchymal density, consistent with fatty infiltration. Gallbladder and bile ducts: The gallbladder demonstrates an abnormal appearance demonstrating diffuse thickening of the gallbladder wall. Minimal hyperintensities demonstrated centrally. Finding may suggest edema in the gallbladder wall. Clinical and ultrasound correlation suggested. Pancreas: Normal. No ductal dilation. Spleen: There is mild splenomegaly with a maximum span of 14.5 centimeters. No focal abnormalities demonstrated. Adrenals: Normal. No mass. Kidneys and ureters: Multiple bilateral non obstructing renal calculi are demonstrated measuring up to 8 mm. 1.4 cm exophytic non-cystic lesion projects off the lower pole of the left kidney. Although the finding may represent a complex solid-appearing cyst ultrasound correlation is suggested to exclude a solid lesion. Stomach and bowel: Unremarkable. No obstruction. No mucosal thickening. Appendix: No evidence of appendicitis. Intraperitoneal space: Unremarkable. No free air. No significant fluid collection. Vasculature: The aorta demonstrates mild atherosclerotic calcification. Lymph nodes: Unremarkable. No enlarged lymph nodes. Bladder: Unremarkable as visualized. Reproductive: The prostate gland demonstrates mild hyperplasia. Bones/joints: Moderate central spinal stenosis at L3-L4 and L4-L5. Degenerative disc space narrowing L5-S1. Moderate to severe bilateral foraminal narrowing at L4-L5 and L5-S1. Soft tissues: Left inguinal hernia. IMPRESSION: 1. There is a diffuse decrease in hepatic parenchymal density, consistent with fatty infiltration. 2. The gallbladder demonstrates an abnormal appearance demonstrating diffuse thickening of the gallbladder wall. Minimal hyperintensities demonstrated centrally. Finding may suggest edema in the gallbladder wall. Clinical and ultrasound correlation suggested. 3. There is mild splenomegaly with a maximum span of 14.5 centimeters. No focal abnormalities demonstrated. 4. Multiple bilateral non obstructing renal calculi are demonstrated measuring up to 8 mm. 5. Mild prostatic hyperplasia. 6. 1.4 cm exophytic non-cystic lesion projects off the lower pole of the left kidney. Although the finding may represent a complex solid-appearing cyst ultrasound correlation is suggested to exclude a solid lesion. COMMENT: Consistent with the [employer]'s Incidental Findings Committee Report (J [employer] Enrike Radiol 2010): Unless the patient's specific circumstances suggest otherwise, any liver lesion 0.5 cm or less, any cystic kidney lesion less than 1.0 cm, and/or any adrenal lesion 1.0 cm or less not otherwise characterized in this report as possessing suspicious or indeterminate imaging features is/are highly likely to be benign and do not require follow-up imaging or biopsy. Electronically signed by: Apolinar Easton On 04/02/2019 19:17:48 PM
[2019-04-02 19:27] LABS: HIV 1&2 SCREEN CENTAUR NEGATIVE (NEGATIVE)
[2019-04-02 20:15] VITALS: BP 120/60
--- NOTE | 2019-04-02 20:20 | REPVR ---
PROCEDURE INFORMATION: Exam: US Abdomen Limited, Right Upper Quadrant Exam date and time: 04/02/2019 8:02 PM Age: 53 years old Clinical history: Abdominal pain; Epigastric; Additional info: Elevated lfts TECHNIQUE: Imaging protocol: Real-time ultrasound of the abdomen with image documentation. Examination was focused on the right upper quadrant. COMPARISON: CT ABD PELVIS W/O CONTRAST 04/02/2019 6:56 PM FINDINGS: Liver: Normal. No masses. Gallbladder: Gallbladder filled with coarsely echogenic material with an irregularly thickened wall. Differential diagnosis includes complex sludge, acute hemorrhagic cholecystitis, and neoplasm. Common bile duct: The common bile duct measures 5.1 mm. No mass or choledocholithiasis. Pancreas: Pancreas obscured by overlying bowel gas. Right kidney: Right kidney measures 11.6 x 5.9 x 5.8 cm. IMPRESSION: Gallbladder filled with coarsely echogenic material with an irregularly thickened wall. Differential diagnosis includes complex sludge, acute hemorrhagic cholecystitis, and neoplasm. Electronically signed by: Apolinar Easton On 04/02/2019 20:20:02 PM
--- NOTE | 2019-04-02 20:22 | ECGEPIP ---
[facility] - ED Test Date: 2019-04-02 Pat Name: MAYO GRIFFITH Department: Room: - Gender: Male Outside Sales Representative Insurance: : [id number] Requested By: ANNEMARIE Bustillo Order Number: [id number] Reading MD: Ni Medina Measurements Intervals Spencer Rate: 99 P: 27 AL: 137 QRS: 36 QRSD: 85 T: 23 QT: 353 QTc: 454 Interpretive Statements SINUS RHYTHM INCREASED RATE 07/08/16 Electronically Signed on 04-02-2019 20:22:44 EST by Ni Medina
[2019-04-02 20:30] VITALS: BP 129/62
[2019-04-02 21:15] VITALS: BP 127/61
[2019-04-02 21:45] VITALS: BP 112/59
[2019-04-02 22:15] VITALS: BP 122/62
[2019-04-04 07:34] LABS: MONO SCRN NEGATIVE (NEGATIVE)
[2019-04-05 10:45] LABS: HEPATITIS B SURFACE ANTIGEN NEGATIVE (NEGATIVE)
[2019-04-05 11:11] LABS: HEPATITIS C VIRUS ABY INDEX 0.1 INDEX (<0.8)
[2019-04-05 11:12] LABS: HEPATITIS B CORE ANTIBODY IGM NEGATIVE (NEGATIVE)
[2019-04-05 11:29] LABS: HEPATITIS A ANTIBODY IGM POSITIVE (NEGATIVE)
== END 2019-04-02 22:30 | disposition short-term general hospital (02) ==
LOC: M ED 17:08
DX: B17.9 Acute viral hepatitis, unspecified (principal); N17.9 Acute kidney failure, unspecified; D64.9 Anemia, unspecified; R16.1 Splenomegaly, not elsewhere classified; N20.0 Calculus of kidney; N40.0 Benign prostatic hyperplasia without lower urinary tract symptoms; R93.2 Abnormal findings on diagnostic imaging of liver and biliary tract; J45.909 Unspecified asthma, uncomplicated; F43.10 Post-traumatic stress disorder, unspecified; F90.9 Attention-deficit hyperactivity disorder, unspecified type; F17.210 Nicotine dependence, cigarettes, uncomplicated; Z88.0 Allergy status to penicillin; Z79.51 Long term (current) use of inhaled steroids; Z79.810 Long term (current) use of selective estrogen receptor modulators (SERMs); Z79.899 Other long term (current) drug therapy
CPT/HCPCS: 36430; 74176; 76705; 80048; 80076; 81001; 82140; 82150; 82550; 82553; 82977; 83605; 83690; 85025; 85610; 85730; 86308; 86705; 86709; 86803; 86850; 86900; 86901; 86920; 87040; 87340; 87389; 93005; 93041; 96360; 96361; 99285; G0480; P9016

== ENCOUNTER → 2022-01-31 | Outpatient (REF) | payer OTHER ==
[~2022-01-31] MED LIST changes: +QUET100T2; -QUET1TAB8
== END ==
LOC: M LAB REF 12:17
PROVIDERS: ATTEND Nurse Practitioner Family
DX: Z51.81 Encounter for therapeutic drug level monitoring (principal)

== ENCOUNTER → 2022-04-11 | Outpatient (REF) | payer OTHER ==
[2022-04-11 17:40] LABS: BASO # 0.1 10^3/uL (0.0-0.2); BASO % 0.6 % (0.0-1.0); EOS # 0.5 10^3/uL (0.0-0.5); EOS % 3.1 % (0.0-3.0); HEMATOCRIT 40.4 % (42.0-52.0); LYMPH # 1.6 10^3/uL (1.5-5.0); MEAN CORPUSCULAR HEMOGLOBIN 31.5 pg (27.0-33.0); MEAN CORPUSCULAR HGB CONC 32.2 g/dl (32.0-36.5); MEAN CORPUSCULAR VOLUME 97.8 fl (80.0-96.0); MONO # 1.3 10^3/uL (0.0-0.8); NEUTROPHILS # 10.9 10^3/uL (1.5-8.5); NEUTROPHILS % 75.9 % (36.0-66.0); PLATELET COUNT, AUTOMATED 327 10^3/uL (150-450); RED BLOOD COUNT 4.13 10^6/uL (4.30-6.10); WHITE BLOOD COUNT 14.3 10^3/uL (4.0-10.0)
[2022-04-11 17:44] LABS: ALBUMIN 3.9 G/DL (3.2-5.2); ALKALINE PHOSPHATASE 67 U/L (46-116); ALT/SGPT 21 U/L (7.0-40); AST/SGOT 26 U/L (<34); BILIRUBIN,TOTAL 0.3 MG/DL (0.3-1.2); BLOOD UREA NITROGEN 25 MG/DL (9-23); CALCIUM LEVEL 9.1 MG/DL (8.5-10.1); CARBON DIOXIDE LEVEL 26 MMOL/L (20-31); CHLORIDE LEVEL 107 MMOL/L (98-107); CHOLESTEROL LEVEL 157 MG/DL (<200); CHOLESTEROL RISK RATIO 3.52 (<5); CREATININE FOR GFR 1.29 MG/DL (0.70-1.30); GLOMERULAR FILTRATION RATE > 60.0 (>56); GLUCOSE, FASTING 88 MG/DL (60-100); HDL CHOLESTEROL 44.6 MG/DL (>40); LDL CHOLESTEROL 93.2 MG/DL (<100); NON-HDL-C 112 MG/DL; POTASSIUM SERUM 4.8 MMOL/L (3.5-5.1); SODIUM LEVEL 140 MMOL/L (136-145); TOTAL PROTEIN 7.2 G/DL (5.7-8.2); TRIGLYCERIDES LEVEL 96 MG/DL (<150)
[2022-04-11 17:51] LABS: THYROID STIMULATING HORMONE 0.531 uIU/ML (0.55-4.78)
[2022-04-11 17:52] LABS: TOTAL 25(OH) VITAMIN D 40.6 NG/ML (20.0-100.0)
== END ==
LOC: M LAB REF 16:24
PROVIDERS: ATTEND Nurse Practitioner Family
DX: D64.9 Anemia, unspecified (principal); I10 Essential (primary) hypertension; E55.9 Vitamin D deficiency, unspecified; F31.9 Bipolar disorder, unspecified

== ENCOUNTER → 2022-05-01 | Outpatient (REF) | payer OTHER ==
[2022-05-01 16:54] LABS: BASO # 0.1 10^3/uL (0.0-0.2); BASO % 1.2 % (0.0-1.0); EOS # 0.6 10^3/uL (0.0-0.5); EOS % 9.1 % (0.0-3.0); HEMATOCRIT 39.4 % (42.0-52.0); HEMOGLOBIN 12.5 g/dl (13.5-17.5); LYMPH # 1.5 10^3/uL (1.5-5.0); LYMPH % 23.2 % (24.0-44.0); MEAN CORPUSCULAR HEMOGLOBIN 31.8 pg (27.0-33.0); MEAN CORPUSCULAR HGB CONC 31.7 g/dl (32.0-36.5); MEAN CORPUSCULAR VOLUME 100.3 fl (80.0-96.0); MONO # 0.7 10^3/uL (0.0-0.8); MONO % 10.6 % (2.0-8.0); NEUTROPHILS # 3.7 10^3/uL (1.5-8.5); NEUTROPHILS % 55.6 % (36.0-66.0); PLATELET COUNT, AUTOMATED 230 10^3/uL (150-450); RED BLOOD COUNT 3.93 10^6/uL (4.30-6.10); WHITE BLOOD COUNT 6.6 10^3/uL (4.0-10.0)
[2022-05-01 17:20] LABS: FREE T4 1.04 NG/DL (0.89-1.76); THYROGLOBULIN ANTIBODY < 15.0 U/ML (<60.0); THYROID PEROXIDASE ANTIBODY 30 U/ML (<60.0)
[2022-05-01 17:22] LABS: THYROID STIMULATING HORMONE 1.752 uIU/ML (0.55-4.78)
== END ==
LOC: M LAB REF 16:19
PROVIDERS: ATTEND Nurse Practitioner Family
DX: D72.829 Elevated white blood cell count, unspecified (principal); R94.6 Abnormal results of thyroid function studies

== ENCOUNTER → 2022-08-13 | Outpatient (CLI) | payer OTHER | LOC: M RAD 17:17 | PROVIDERS: ATTEND Physician Assistant Medical | DX: M25.511 Pain in right shoulder (principal) ==

== ENCOUNTER 2023-11-02 09:03 | Inpatient (IN) | payer OTHER, MEDICAID ==
[2023-11-02] VITALS (22 sets, daily range): BP systolic 121–145; BP diastolic 82–93; TEMP 97.2–98.7; O2SAT 88–98
[~2023-11-02] VITALS: Ht 182.9 cm; Wt 118.9 kg
[~2023-11-02 09:03] MED LIST changes: -COZA50TA PO; +LOSA-528 PO
[2023-11-02] MEDS: NS 500 ML IV ONE (09:51)
[2023-11-02] MEDS: methylPREDNISolone 125MG 2ML VIAL IV ONE (09:51)
[2023-11-02] MEDS: LEVALBUTEROL 1.25MG 0.5ML CONCENTRATE NEB NEB ONE (10:11)
[2023-11-02 10:14] LABS: ABG BASE EXCESS -0.3 (-2.0-2.0); ABG HCO3 23.6 MMOL/L (22.0-26.0); ABG O2 SATURATION 96.3 % (95.0-99.0); ABG PARTIAL PRESSURE CO2 36.4 mmHg (35.0-45.0); ABG PARTIAL PRESSURE O2 87.6 mmHg (75.0-100.0); ABG STANDARD HCO3 24.2 MMOL/L. (22.0-26.0); ABG TOTAL CO2 24.7 MMOL/L (22.0-29.0)
[2023-11-02 10:17] LABS: BASO % 0.5 % (0.0-1.0); EOS # 0.2 10^3/uL (0.0-0.5); EOS % 1.7 % (0.0-3.0); HEMATOCRIT 39.1 % (42.0-52.0); HEMOGLOBIN 12.2 g/dl (13.5-17.5); LYMPH # 0.7 10^3/uL (1.5-5.0); LYMPH % 8.2 % (24.0-44.0); MEAN CORPUSCULAR HEMOGLOBIN 28.8 pg (27.0-33.0); MEAN CORPUSCULAR HGB CONC 31.2 g/dl (32.0-36.5); MEAN CORPUSCULAR VOLUME 92.4 fl (80.0-96.0); MONO # 0.6 10^3/uL (0.0-0.8); MONO % 7.1 % (2.0-8.0); NEUTROPHILS # 7.2 10^3/uL (1.5-8.5); NEUTROPHILS % 82.3 % (36.0-66.0); PLATELET COUNT, AUTOMATED 221 10^3/uL (150-450); RED BLOOD COUNT 4.23 10^6/uL (4.30-6.10); WHITE BLOOD COUNT 8.7 10^3/uL (4.0-10.0)
[2023-11-02 10:29] LABS: INR 1.31; PARTIAL THROMBOPLASTIN TIME 27.1 SECONDS (24.8-34.2); PROTHROMBIN TIME 15.9 SECONDS (12.5-14.5)
[2023-11-02] MEDS ORDERED: ISOVUE-370 76% 100ML VIAL As Ordered ONE (10:34)
[2023-11-02 10:39] LABS: CK-MB VALUE MASS 7.7 NG/ML (<3.6); LIPASE 31 U/L (12-53)
[2023-11-02 10:40] LABS: MB/CK RELATIVE INDEX 5.7 (< OR =4)
[2023-11-02 10:41] LABS: ALBUMIN 3.4 G/DL (3.2-5.2); ALKALINE PHOSPHATASE 76 U/L (46-116); ALT/SGPT 39 U/L (7.0-40); AST/SGOT 31 U/L (<34); BILIRUBIN,DIRECT 0.4 MG/DL (<0.4); BILIRUBIN,TOTAL 0.9 MG/DL (0.3-1.2); BLOOD UREA NITROGEN 31 MG/DL (9-23); CALCIUM LEVEL 9.3 MG/DL (8.5-10.1); CARBON DIOXIDE LEVEL 25 MMOL/L (20-31); CHLORIDE LEVEL 109 MMOL/L (98-107); CK-MB VALUE MASS 7.3 NG/ML (<3.6); CPK CREATINE PHOSPHOKINASE 128 U/L (46-171); CREATININE FOR GFR 1.27 MG/DL (0.70-1.30); GLOMERULAR FILTRATION RATE > 60.0 (>56); GLUCOSE, FASTING 115 MG/DL (60-100); POTASSIUM SERUM 4.1 MMOL/L (3.5-5.1); SODIUM LEVEL 142 MMOL/L (136-145); TOTAL PROTEIN 6.3 G/DL (5.7-8.2)
[2023-11-02 10:43] LABS: FREE T4 1.24 NG/DL (0.89-1.76)
[2023-11-02 10:44] LABS: THYROID STIMULATING HORMONE 1.138 uIU/ML (0.55-4.78)
[2023-11-02] MEDS ORDERED: diltiaZEM 125 MG in NS 100 ML IV SCH ×2 (10:45→12:00)
[2023-11-02] MEDS: MAG SULF 1GM/100ML (MAG RUN) 1 GM in IV 1 EA IV ONE (11:26)
[2023-11-02] MEDS: HEPARIN SOD (PORCINE) 5000UNITS/ML 1ML VIAL/SYRINGE IV ONE (11:28)
[2023-11-02] MEDS: HEPARIN DRIP 25,000 UNITS in IV 1 EA IV SCH ×2 (11:30→15:59)
[2023-11-02] MEDS: diltiaZEM 125 MG in NS 100 ML IV SCH ×2 (11:37→14:35)
[2023-11-02] MEDS: dilTIAZem 25MG/5ML VIAL IV STA (12:28)
[2023-11-02] MEDS: ASPIRIN 81MG CHEW TABLET PO ONE (12:28)
[2023-11-02] MEDS ORDERED: ALBU8.5H INH (12:47)
[2023-11-02] MEDS ORDERED: MULT-90 PO (12:47)
[2023-11-02] MEDS ORDERED: METO1TAB7 PO (12:53)
[2023-11-02] MEDS ORDERED: FERR32TA PO (12:53)
[2023-11-02] MEDS ORDERED: EQL50TAB2 PO (12:53)
[2023-11-02] MEDS ORDERED: ROSU20TA61 PO (12:53)
[2023-11-02] MEDS ORDERED: IBUP200C25 PO (12:53)
[2023-11-02] MEDS ORDERED: HOME MED LIST COMPLETE! XX SCH (12:55)
[2023-11-02 13:54] LABS: CK-MB VALUE MASS 6.9 NG/ML (<3.6)
[2023-11-02 13:56] LABS: MB/CK RELATIVE INDEX 5.47 (< OR =4)
[2023-11-02] MEDS: PANTOPRAZOLE 40MG TAB (PROTONIX) PO SCH (14:00)
[2023-11-02] MEDS: BUDESONIDE 0.5 MG/2 ML INHALATION SUSPENSION NEB SCH (14:11)
[2023-11-02] MEDS: IPRATROPIUM 0.5MG/ALBUTEROL 2.5MG INH SOL UD 3ML (DUONEB) NEB SCH (16:28)
[2023-11-02] MEDS: methylPREDNISolone 125MG 2ML VIAL IV SCH (18:25)
[2023-11-02] MEDS: AMIODARONE HCL 150 MG in IV 1 EA IV ONE (19:27)
[2023-11-02] MEDS: AMIODARONE HCL 360 MG in IV 1 EA IV SCH (19:42)
[2023-11-02] MEDS: HEPARIN SOD (PORCINE) 5000UNITS/ML 1ML VIAL/SYRINGE IV PRN (23:17)
[2023-11-03] VITALS (13 sets, daily range): BP systolic 109–144; BP diastolic 72–90; TEMP 97.6–99; O2SAT 93–100
[2023-11-03] MEDS: AMIODARONE HCL 360 MG in IV 1 EA IV SCH (01:40)
[2023-11-03 07:28] LABS: MEAN CORPUSCULAR HEMOGLOBIN 29.1 pg (27.0-33.0); MEAN CORPUSCULAR HGB CONC 32.4 g/dl (32.0-36.5); MEAN CORPUSCULAR VOLUME 89.6 fl (80.0-96.0); PLATELET COUNT, AUTOMATED 222 10^3/uL (150-450); RED BLOOD COUNT 4.13 10^6/uL (4.30-6.10)
[2023-11-03 07:37] LABS: ALBUMIN 3.1 G/DL (3.2-5.2); ALKALINE PHOSPHATASE 68 U/L (46-116); ALT/SGPT 33 U/L (7.0-40); AST/SGOT 22 U/L (<34); BILIRUBIN,TOTAL 0.6 MG/DL (0.3-1.2); BLOOD UREA NITROGEN 27 MG/DL (9-23); CALCIUM LEVEL 8.5 MG/DL (8.5-10.1); CARBON DIOXIDE LEVEL 24 MMOL/L (20-31); CHLORIDE LEVEL 108 MMOL/L (98-107); CREATININE FOR GFR 0.94 MG/DL (0.70-1.30); GLOMERULAR FILTRATION RATE > 60.0 (>56); GLUCOSE, FASTING 154 MG/DL (60-100); POTASSIUM SERUM 4.3 MMOL/L (3.5-5.1); SODIUM LEVEL 137 MMOL/L (136-145)
[2023-11-03] MEDS: clonazePAM 0.5 MG TAB PO ONE (09:17)
[2023-11-03] MEDS: METOPROLOL TART 25 MG TABLET PO SCH (11:14)
[2023-11-03] MEDS: APIXABAN 5 MG TAB (ELIQUIS) PO SCH (11:14)
[2023-11-03] MEDS ORDERED: METOPROLOL TART 25 MG TABLET PO SCH (12:00)
[2023-11-03] MEDS ORDERED: ALBUTEROL 90 MCG/ACT 8GM HFA INHALER INH PRN (15:50)
[2023-11-03] MEDS ORDERED: AMIODARONE 200 MG TAB (PACERONE) PO SCH (16:00)
[2023-11-03] MEDS: DIGOXIN INJ 0.5 MG/2 ML AMP IV STA (16:11)
[2023-11-03] MEDS: methylPREDNISolone 125MG 2ML VIAL IV SCH (21:06)
[2023-11-03] MEDS: AMIODARONE 200 MG TAB (PACERONE) PO SCH (21:07)
[2023-11-03] MEDS: DIGOXIN INJ 0.5 MG/2 ML AMP IV ONE (23:39)
[2023-11-03] MEDS: FUROSEMIDE 20MG/2ML VIAL IV ONE (23:40)
[2023-11-04 04:00] VITALS: BP 145/85; TEMP 97.1; O2SAT 96
[2023-11-04 04:07] VITALS: BP 145/85
[2023-11-04] MEDS ORDERED: MULTIVITAMINS/MINERALS THERAP 1 TAB PO SCH (09:00)
[2023-11-04] MEDS ORDERED: ROSUVASTATIN 10 MG TAB (CRESTOR) PO SCH (09:00)
[2023-11-04] MEDS ORDERED: ARIPiprazole 15 MG TAB (AbiLIFY) PO SCH (09:00)
[2023-11-04] MEDS ORDERED: FERROUS GLUCONATE 324 MG TAB PO SCH (09:00)
== END 2023-11-04 07:25 | disposition left against medical advice (07) | DRG 201 ==
LOC: M ED 09:03 → EDBD 09:03 → M ED INP 13:30 → M ICU 14:12
PROVIDERS: ADMIT Internal Medicine Pulmonary Disease; ATTEND Internal Medicine
DX: I48.92 Unspecified atrial flutter (principal); I42.8 Other cardiomyopathies; J44.1 Chronic obstructive pulmonary disease with (acute) exacerbation; I11.0 Hypertensive heart disease with heart failure; J45.901 Unspecified asthma with (acute) exacerbation; I50.20 Unspecified systolic (congestive) heart failure; D64.9 Anemia, unspecified; F17.210 Nicotine dependence, cigarettes, uncomplicated; F32.A Depression, unspecified; K21.9 Gastro-esophageal reflux disease without esophagitis; R00.0 Tachycardia, unspecified; Z79.899 Other long term (current) drug therapy; Z88.0 Allergy status to penicillin